=== PATIENT | male | born 1990 | race African-American/Black ===

== ENCOUNTER 2018-09-28 11:09 | Emergency (ER) | payer MEDICAID ==
[~2018-09-28] VITALS: Ht 177.8 cm; Wt 98.0 kg
[2018-09-28 11:29] VITALS: Ht 177.8 cm; Wt 98.0 kg
[2018-09-28 13:45] VITALS: BP 137/70
== END 2018-09-28 13:45 | disposition home or self-care (01) ==
LOC: ED 11:09
DX: R04.2 Hemoptysis (principal)

== ENCOUNTER 2018-10-01 13:41 | Emergency (ER) | payer MEDICAID ==
[~2018-10-01] VITALS: Ht 177.8 cm; Wt 100.2 kg
[2018-10-01 13:49] VITALS: Ht 177.8 cm; Wt 100.2 kg
[2018-10-01 16:49] LABS: PLATELET COUNT 253 x10^3mcL (130-400)
[2018-10-01 17:07] LABS: ALBUMIN 4.3 g/dL (3.4-5.0); ALKALINE PHOSPHATASE 104 U/L (46-116); ALT/SGPT 46 U/L (16-63); AST/SGOT 34 U/L (15-37); BILIRUBIN TOTAL 1.02 mg/dL (0.20-1.00); CALCIUM 9.2 mg/dL (8.5-10.1); CARBON DIOXIDE 22.5 mmol/L (21-32); CHLORIDE SERUM 106 mmol/L (98-107); CREATININE SERUM 1.3 mg/dL (0.7-1.3); GFR1 > 60 mL/min; GLUCOSE SERUM 101 mg/dL (74-106); LIPASE 87 IU/L (73-393); SODIUM SERUM 137 mmol/L (136-145)
[2018-10-01 17:16] LABS: TOTAL PROTEIN, SERUM 8.5 g/dL (6.4-8.2)
[2018-10-01 17:17] LABS: POTASSIUM SERUM 6.1 mmol/L (3.5-5.1)
[2018-10-01 17:36] LABS: BAND NEUTROPHIL 2 % (0-10); MONOCYTE 4 % (0-7); PLATELET MORPHOLOGY PLATELETS NORMAL; SEGMENTED NEUTROPHILS 88 % (37-75); rbc morphology (normal/abnorm) NORMAL (NORMAL)
[2018-10-01 17:49] LABS: CALCIUM 8.8 mg/dL (8.5-10.1); CARBON DIOXIDE 24.7 mmol/L (21-32); CHLORIDE SERUM 105 mmol/L (98-107); CREATININE SERUM 1.4 mg/dL (0.7-1.3); GFR1 > 60 mL/min; GLUCOSE SERUM 104 mg/dL (74-106); POTASSIUM SERUM 5.4 mmol/L (3.5-5.1); SODIUM SERUM 137 mmol/L (136-145)
[2018-10-01 19:39] LABS: UA SPECIFIC GRAVITY 1.025 (1.005-1.035); microscopic required? YES; urine erythrocyte TRACE (NEGATIVE)
[2018-10-01 20:55] LABS: CALCIUM 8.2 mg/dL (8.5-10.1); CARBON DIOXIDE 24.4 mmol/L (21-32); CHLORIDE SERUM 105 mmol/L (98-107); CREATININE SERUM 1.4 mg/dL (0.7-1.3); GFR1 > 60 mL/min; GLUCOSE SERUM 92 mg/dL (74-106); POTASSIUM SERUM 4.7 mmol/L (3.5-5.1); SODIUM SERUM 138 mmol/L (136-145)
[2018-10-01 22:30] VITALS: BP 118/67
== END 2018-10-01 22:30 | disposition home or self-care (01) ==
LOC: ED 13:41
PROVIDERS: Emergency Medicine
DX: R10.13 Epigastric pain (principal); R11.10 Vomiting, unspecified; R19.7 Diarrhea, unspecified; N28.9 Disorder of kidney and ureter, unspecified; N13.30 Unspecified hydronephrosis
CPT/HCPCS: 87804; J1885; J2405; J3490; J7030; Q0092

== ENCOUNTER 2018-12-21 22:44 | Emergency (ER) | payer MEDICAID ==
[~2018-12-21] VITALS: Ht 177.8 cm; Wt 93.9 kg
[2018-12-21 23:26] VITALS: Ht 177.8 cm; Wt 93.9 kg
[2018-12-22 00:30] LABS: ALBUMIN 4.8 g/dL (3.4-5.0); BASOPHIL % 1.9 % (0-2); BILIRUBIN TOTAL 1.7 mg/dL (0.20-1.00); CALCIUM 10.1 mg/dL (8.5-10.1); CARBON DIOXIDE 29.9 mmol/L (21-32); CREATININE SERUM 1.6 mg/dL (0.7-1.3); PLATELET COUNT 250 x10^3mcL (130-400); RED CELL DISTRIBUTION WIDTH 13.6 % (11.5-14.5)
[2018-12-22 00:43] LABS: TOTAL PROTEIN, SERUM 8.7 g/dL (6.4-8.2)
[2018-12-22 00:44] LABS: POTASSIUM SERUM 2.9 mmol/L (3.5-5.1)
[2018-12-22 02:46] VITALS: BP 96/50
== END 2018-12-22 02:46 | disposition home or self-care (01) ==
LOC: ED 22:44
PROVIDERS: Emergency Medicine
DX: K29.00 Acute gastritis without bleeding (principal); E87.6 Hypokalemia
CPT/HCPCS: 36415; Q0092